=== PATIENT | male | born 1985 | race Two or more races ===

== ENCOUNTER 2024-02-23 06:44 | Emergency (ER) | payer OTHER ==
[~2024-02-23] VITALS: Ht 180.3 cm; Wt 127.3 kg
[2024-02-23 07:21] LABS: APPEARANCE,URINE CLEAR (CLEAR); COLOR,URINE LIGHT YELLOW (YELLOW)
[2024-02-23 07:22] LABS: BILIRUBIN,URINE NEGATIVE (NEGATIVE); GLUCOSE, URINE (UA) NEGATIVE (NEGATIVE); KETONES,URINE NEGATIVE (NEGATIVE); LEUKOCYTE ESTERASE ,URINE NEGATIVE (NEGATIVE); NITRATE,URINE NEGATIVE (NEGATIVE); OCCULT BLOOD,URINE NEGATIVE (NEGATIVE); PH,URINE 6.5 (5.0-8.0); PROTEIN,URINE NEGATIVE (NEGATIVE); SPECIFIC GRAVITIY, URINE 1.027 (1.003-1.030); UROBILINOGEN,URINE <=1.0 mg/dL (<=1.0)
[2024-02-23] MEDS: AZITHROMYCIN 500 MG TABLET PO ONE (07:32)
[2024-02-23] MEDS: CefTRIAXone SODIUM 1 GM/VIAL IM ONE (07:32)
[2024-02-23] MEDS: LIDOCAINE/PF 1% 2 ML VIAL IM ONE (07:32)
[2024-02-23 07:57] VITALS: BP 141/103; PULSE 106; RESP 20; TEMP 98.8; O2SAT 98
== END 2024-02-23 08:14 | disposition home or self-care (01) ==
LOC: EMS 06:46
DX: N34.2 Other urethritis (principal)
CPT/HCPCS: 99283; 81003; 87491; 87591; 96372; J0456; J0696; J3490